=== PATIENT | male | born 1980 | race Caucasian/White ===

== ENCOUNTER → 2020-10-24 | Day surgery (SDC) | payer OTHER ==
[~2020-10-24] VITALS: Ht 177.8 cm; Wt 90.7 kg
[~2020-10-24] MED LIST: PERCOCET 5-3251 EACH PO
== END | disposition home or self-care (01) ==
LOC: FAS 10:56
DX: S86.012A Strain of left Achilles tendon, initial encounter (principal); X58.XXXA Exposure to other specified factors, initial encounter
CPT/HCPCS: J0690; J1170; J2250; J2704; J2710; J2795; J3010; J7120; Q4125